=== PATIENT | female | born 1950 | race Caucasian/White ===

== ENCOUNTER 2016-05-22 19:29 | Observation (INO) | payer MEDICARE, OTHER ==
[~2016-05-22 19:29] MED LIST: ALBU8I INH; BENZ100 PO; CARV3.125 PO; DUONI NEB; ECOT81TA2 PO; METR-1 PO; NEBUMIS6 INH; OYST500T77 PO; TAB-TAB PO; VITA100T15 PO; VITA400C28 PO; ZITH250T PO
[2016-05-22 19:32] VITALS: BP 172/85; PULSE 81; RESP 18; TEMP 98.1; O2SAT 98
[2016-05-22 20:27] LABS: AUTOMATED NEUTROPHIL # 3.5 TH/MM3 (1.8-7.7); BASOPHIL # 0.1 TH/MM3 (0-0.2); EOSINOPHIL # 0.3 TH/MM3 (0-0.4); EOSINOPHIL % 4.2 % (0.0-4.0); HEMATOCRIT 40.8 % (35.0-46.0); HEMO FLAGS DIFF FINAL; LYMPH % 35.1 % (9.0-44.0); LYMPHOCYTE # 2.3 TH/MM3 (1.0-4.8); MEAN CELL VOLUME 89.2 FL (80.0-100.0); MEAN CORPUSCULAR HEMOGLOBIN 30.3 PG (27.0-34.0); MONO % 6.8 % (0.0-8.0); NEUT % 52.9 % (16.0-70.0); PLATELET COUNT 340 TH/MM3 (150-450); RED BLOOD COUNT 4.57 MIL/MM3 (4.00-5.30); WHITE BLOOD COUNT 6.6 TH/MM3 (4.0-11.0)
[2016-05-22 20:57] LABS: ANION GAP 8 MEQ/L (5-15); BICARBONATE 28.7 MEQ/L (21.0-32.0); BLOOD UREA NITROGEN 11 MG/DL (7-18); CHLORIDE 101 MEQ/L (98-107); GLOMERULAR FILTRATION RATE 50 ML/MIN (>89); POTASSIUM 3.6 MEQ/L (3.5-5.1); SODIUM (NA) 138 MEQ/L (136-145)
[2016-05-22 21:07] LABS: CREATINE KINASE 110 U/L (26-192)
--- NOTE | 2016-05-22 21:07 | RADRPT ---
EXAM DATE/TIME: 05/22/2016 18:01 [place] COMPARISON: CHEST SINGLE AP, June 09, 2014, 10:46. INDICATIONS : Mid sternal chest pains x 4 days. MEDICAL HISTORY : Heart Attack SURGICAL HISTORY : Hysterectomy. Tonsillectomy. Cholecystectomy. ENCOUNTER: Initial ACUITY: 1 day PAIN SCORE: 5/10 LOCATION: Bilateral chest FINDINGS: A single view of the chest demonstrates the lungs to be symmetrically aerated without evidence of mas s, infiltrate or effusion. The cardiomediastinal contours are unremarkable. Mild thoracic dextroscol iosis. CONCLUSION: 1. No acute findings. Mild thoracic dextroscoliosis. Luigi Lopez MD on May 22, 2016 at 21:05 Board Certified Radiologist. This report was verified electronically.
[2016-05-22 21:18] LABS: CKMB 1.1 NG/ML (0.5-3.6)
[2016-05-22] MEDS ORDERED: ASPI1TAB69 PO (22:28)
[2016-05-22] MEDS ORDERED: ALPR.5 PO (22:28)
[2016-05-22] MEDS ORDERED: LORA-373 PO (22:29)
[2016-05-22 22:45] VITALS: BP 179/86; PULSE 76; RESP 24; TEMP 98.7; O2SAT 96
[2016-05-22] MEDS ORDERED: ACETAMINOPHEN 325 MG TAB PO ONE (22:45)
[2016-05-22] MEDS ORDERED: NITROGLYCERIN 2% OINT 1 GM PACKET TOP ONE (22:45)
--- NOTE | 2016-05-22 22:45 | PD ---
HPI Chief Complaint: Chest Pain Time Seen by Provider: 22:42 Travel History International Travel<30 days: No Contact w/Intl Traveler<30days: No History of Present Illness HPI 66-year-old female with a history of anxiety, takotsubo cardiomyopathy presents to the ED for evaluation of four-day history of central chest discomfort and fatigue. Onset at rest. No alleviating or exacerbating factors reported. Patient states this pain radiates to her jaw and teeth. She denies associated diaphoresis, palpitations, nausea, vomiting, shortness of breath. She has been able to go about her daily activities including 10,000 steps per day. She also complains of 5/10 bitemporal dull headache, gradual onset today. She denies dizziness, vision changes, photophobia. Patient had a heart catheter 05/2014 which revealed mild to moderate mitral valve leak. She does not currently have a pediatric radiologist. PFSH Past Medical History Heart Rhythm Problems: Yes (WAS TOLD HR WAS HIGH) Cancer: No Cardiac Catheterization: Yes (05/2014) Cardiomyopathy: Yes (MILD TO MODERATE MITRAL VALVE LEAK) Cardiovascular Problems: Yes High Cholesterol: Yes Chest Pain: No Congestive Heart Failure: No Diabetes: No Diminished Hearing: No Endocrine: No Genitourinary: Yes (UTI) Hypertension: No Immune Disorder: No Implanted Vascular Access Dvce: Yes Kidney Stones: No Musculoskeletal: No Neurologic: No Psychiatric: No Reproductive: Yes (HYSTERECTOMY) Respiratory: No Myocardial Infarction: No Renal Failure: No Dilation and Curettage (D&C): Yes (SEVERAL PRIOR TO HYSTERECTOMY) Past Surgical History Abdominal Surgery: Yes AICD: No Appendectomy: Yes Arteriovenous Shunt: No Body Medical Devices: BREAST IMPLANTS Cardiac Surgery: No Coronary Artery Bypass Graft: No Ear Surgery: No Endocrine Surgery: No Eye Surgery: No Genitourinary Surgery: No Gynecologic Surgery: No Hysterectomy: Yes Insulin Pump: No Joint Replacement: No Oral Surgery: No Pacemaker: No Thoracic Surgery: No Tonsillectomy: Yes Other Surgery: Yes (BREAST AUGMENTATION) Social History Alcohol Use: Yes (GLASS OF WINE OCC) Tobacco Use: No (QUIT 1994) Substance Use: No Allergies-Medications (Allergen,Severity, Reaction): Coded Allergies: No Known Allergies (Verified , 06/13/14) Reported Meds & Prescriptions Reported Meds & Active Scripts Active Reported Lorazepam 0.5 Mg Tab 0.5 Mg PO BID PRN Aspirin 81 Mg Tabdr 81 Mg PO DAILY Review of Systems Except as stated in HPI: all other systems reviewed are Neg Physical Exam Narrative GENERAL: Well-nourished, well-developed pleasant white female in no acute distress. SKIN: Warm and dry. HEAD: Normocephalic. Atraumatic. EYES: No scleral icterus. No injection or drainage. PERRLA. EOMI. ENT: Pearly luis tympanic membranes bilaterally. Nasal mucosa is moist. Oropharynx without erythema, edema or exudate. NECK: Supple, trachea midline. No JVD or lymphadenopathy. CARDIOVASCULAR: Regular rate and rhythm without murmurs, gallops, or rubs. 2+ DP and radial pulses bilaterally. RESPIRATORY: Breath sounds clear and equal bilaterally. No accessory muscle use. GASTROINTESTINAL: Abdomen soft, non-tender, nondistended. + Bowel sounds MUSCULOSKELETAL: No cyanosis, or edema. The patient is ambulatory, observed to walk with a normal gait. NEUROLOGICAL: Awake and alert. Cranial nerves II through XII intact. Motor and sensory grossly within normal limits. 5/5 muscle strength in all muscle groups. Normal speech. BACK: Nontender without obvious deformity. No CVA tenderness. Data Data Last Documented VS Vital Signs Date Time Temp Pulse Resp B/P Pulse Ox O2 Delivery O2 Flow Rate FiO2 05/22/16 23:00 98.7 72 24 158/77 98 Room Air Orders Electrocardiogram (05/22/16 19:34) Complete Blood Count With Diff (05/22/16 19:34) Basic Metabolic Panel (Bmp) (05/22/16 19:34) Ckmb (Isoenzyme) Profile (05/22/16 19:34) Troponin I (05/22/16 19:34) Chest, Single Ap (05/22/16 19:34) CKMB (05/22/16 20:10) CKMB% (05/22/16 20:10) Electrocardiogram (05/22/16 22:39) Ckmb (Isoenzyme) Profile (05/22/16 22:39) Prothrombin Time / Inr (Pt) (05/22/16 22:39) Act Partial Throm Time (Ptt) (05/22/16 22:39) Troponin I (05/22/16 22:39) Ecg Monitoring (05/22/16 22:39) Bilateral Bp Monitoring (05/22/16 22:39) Iv Access Insert/Monitor (05/22/16 22:39) Oximetry (05/22/16 22:39) Nitroglycerin 2% Oint (Nitroglycerin 2% (05/22/16 22:45) Acetaminophen (Tylenol) (05/22/16 22:45) Urinalysis - C+S If Indicated (05/22/16 22:58) Admit Order (Ed Use Only) (05/22/16 23:07) Place In Observation (05/22/16 23:07) Activity Bed Rest With Brp (05/22/16 23:07) Vital Signs (Adult) Q4H (05/22/16 23:07) Cardiac Rhythm .As Directed (05/22/16 23:07) ^ Notify Dr: Other .PRN (05/22/16 23:07) ^ Notify DrSteven Parameters (05/22/16 23:07) Resp Oxygen Nasal Cannula (05/22/16 ) Ckmb (Isoenzyme) Profile (05/23/16 02:07) Troponin I (05/23/16 02:07) Electrocardiogram (05/23/16 02:07) ^ Obtain (05/22/16 23:07) Sodium Chloride 0.9% Flush (Ns Flush) (05/22/16 23:15) Sodium Chloride 0.9% Flush (Ns Flush) (05/22/16 23:15) Mushroom Cultivator / Telemetry TICO.Q8H (05/22/16 23:07) Labs Laboratory Tests Test 05/22/16 05/22/16 20:10 22:50 White Blood Count 6.6 TH/MM3 Red Blood Count 4.57 MIL/MM3 Hemoglobin 13.9 GM/DL Hematocrit 40.8 % Mean Corpuscular Volume 89.2 FL Mean Corpuscular Hemoglobin 30.3 PG Mean Corpuscular Hemoglobin 34.0 % Concent Red Cell Distribution Width 13.0 % Platelet Count 340 TH/MM3 Mean Platelet Volume 6.8 FL Neutrophils (%) (Auto) 52.9 % Lymphocytes (%) (Auto) 35.1 % Monocytes (%) (Auto) 6.8 % Eosinophils (%) (Auto) 4.2 % Basophils (%) (Auto) 1.0 % Neutrophils # (Auto) 3.5 TH/MM3 Lymphocytes # (Auto) 2.3 TH/MM3 Monocytes # (Auto) 0.4 TH/MM3 Eosinophils # (Auto) 0.3 TH/MM3 Basophils # (Auto) 0.1 TH/MM3 CBC Comment DIFF FINAL Differential Comment Sodium Level 138 MEQ/L Potassium Level 3.6 MEQ/L Chloride Level 101 MEQ/L Carbon Dioxide Level 28.7 MEQ/L Anion Gap 8 MEQ/L Blood Urea Nitrogen 11 MG/DL Creatinine 1.09 MG/DL Estimat Glomerular Filtration 50 ML/MIN Rate Random Glucose 75 MG/DL Calcium Level 9.1 MG/DL Total Creatine Kinase 110 U/L 99 U/L Creatine Kinase MB 1.1 NG/ML Troponin I LESS THAN 0.02 LESS THAN 0.02 NG/ML NG/ML Prothrombin Time 11.1 SEC Prothromb Time International 1.0 RATIO Ratio Activated Partial 26.2 SEC Thromboplast Time Urine Color LIGHT-YELLOW Urine Turbidity CLEAR Urine pH 7.0 Urine Specific [place] 1.004 Urine Protein NEG mg/dL Urine Glucose (UA) NEG mg/dL Urine Ketones NEG mg/dL Urine Occult Blood NEG Urine Nitrite NEG Urine Bilirubin NEG Urine Urobilinogen LESS THAN 2.0 MG/DL Urine Leukocyte Esterase MOD Urine RBC LESS THAN 1 /hpf Urine WBC 8 /hpf Urine Squamous Epithelial <1 /hpf Cells Urine Bacteria RARE /hpf Microscopic Urinalysis Comment CULTURE INDICATED MDM Medical Decision Making Medical Screen Exam Complete: Yes Emergency Medical Condition: Yes Differential Diagnosis chest pain versus angina versus ACS versus cardiomyopathy versus anxiety versus Narrative Course 66-year-old female with a history of anxiety, takotsubo cardiomyopathy presents to the ED for evaluation of four-day history of central chest discomfort and fatigue. Onset at rest. No alleviating or exacerbating factors reported. Patient states this pain radiates to her jaw and teeth. She denies associated diaphoresis, palpitations, nausea, vomiting, shortness of breath. She has been able to go about her daily activities including 10,000 steps per day. She also complains of 5/10 bitemporal dull headache, gradual onset today. She denies dizziness, vision changes, photophobia. Patient had a heart catheter 05/2014 which revealed mild to moderate mitral valve leak. She does not currently have a pediatric radiologist. Vitals reviewed. Repeat 172/82 on presentation. Physical exam reveals a nontoxic-appearing white female in no acute distress. Chest is clear to auscultation bilaterally, equal pulses in all extremities. No focal neural deficits. Protocols were done in triage. First set of cardiac enzymes is negative. CBC: Unremarkable CMP: Unremarkable Cardiac enzymes: Negative 1 EKG: Sinus rhythm rate 70, VT interval 177, QRS 96, QTc 387. Normal axis. No ischemic changes. Reviewed by Dr. Fischer. Chest x-ray: No acute findings per radiology read. UA: Pending. Patient was administered Tylenol, 1 inch nitroglycerin paste applied to her chest. I discussed this patient, workup and plan of care with Dr. Fischer who is agreeable. Discussed the workup with the patient, recommended admission to the chest pain center for serial cardiac enzymes and EKGs. Patient and her family are amenable to this plan of care. Please see chest pain center notes for disposition. Diagnosis Primary Impression: Chest pain Qualified Code: R07.9 - Chest pain, unspecified type Sania Rodriguez May 22, 2016 22:45
[2016-05-22 23:00] VITALS: BP 158/77; PULSE 72; RESP 24; TEMP 98.7; O2SAT 98
[2016-05-22 23:10] VITALS: O2SAT 98
[2016-05-22] MEDS ORDERED: SODIUM CHLORIDE 0.9% FLUSH 5 ML FLUSH IVF PRN (23:15)
[2016-05-22 23:16] LABS: APTT (PATIENT) 26.2 SEC (24.3-30.1); PROTHROMBIN TIME - PATIENT 11.1 SEC (9.8-11.6)
[2016-05-22 23:23] LABS: BACTERIA, URINE RARE /hpf; BLOOD, URINE NEG (NEG); COMMENT (UR) CULTURE INDICATED; CULTURE IF INDICATED CULTURE INDICATED; GLUCOSE,URINE NEG (NEG); KETONE, URINE NEG (NEG); NITRITE,URINE NEG (NEG); SQUAMOUS EPITHELIAL CELL URINE <1 /hpf (0-5); URINE COLOR LIGHT-YELLOW (YELLW/STRAW)
[2016-05-22 23:30] VITALS: BP 132/67; PULSE 66; RESP 18; O2SAT 99
[2016-05-22] MEDS: SODIUM CHLORIDE 0.9% FLUSH 5 ML FLUSH IVF SCH (23:42)
[2016-05-23] VITALS: BP 119/74; PULSE 64; RESP 18; O2SAT 98
[2016-05-23 00:11] LABS: CREATINE KINASE 99 U/L (26-192)
[2016-05-23] MEDS ORDERED: LORazepam 0.5 MG TAB PO ONE (01:15)
[2016-05-23 04:00] VITALS: BP 113/65; PULSE 60; RESP 18; O2SAT 98
[2016-05-23 07:10] VITALS: BP 122/67; PULSE 58; RESP 18; TEMP 97.9; O2SAT 98
[2016-05-23 07:48] LABS: CREATINE KINASE 82 U/L (26-192)
--- NOTE | 2016-05-23 07:50 | HHI.DCPOC ---
Discharge Care Plan Diagnosis: (1) Chest pain Goals to Promote Your Health * To prevent worsening of your condition and complications * To maintain your health at the optimal level Directions to Meet Your Goals Take your medications as prescribed Follow your dietary instruction Follow activity as directed Keep your appointments as scheduled Take your immunizations and boosters as scheduled If your symptoms worsen call your PCP, if no PCP go to Urgent Care Center or Emergency Room Smoking is Dangerous to Your Health. Avoid second hand smoke Call the 24-hour hour crisis hotline for domestic abuse at Shayne Mendez May 23, 2016 07:50
--- NOTE | 2016-05-23 08:08 | MH ---
cc: BIN MCKAY MD DATE OF ADMISSION: 05/22/2016 HISTORY OF PRESENT ILLNESS This is a 66-year-old who is admitted to the hospital for a four day history of chest discomfort. She has a history of NC which was felt to be Takotsubo syndrome 2 years ago. At that time she experienced severe emotional event with the of her . She was seen in the hospital and underwent cardiac catheterization revealing normal coronaries with evidence for Takotsubo syndrome. Her followup exam demonstrated resolution of her left ventricular dysfunction. She has actually been doing quite well over the past 2 years. She has had no exertional discomfort and is quite active on a daily basis. This past Saturday on the anniversary of her 's she began having chest discomfort again and this also coincided with a decision whether or not to move out of her current location. In the end she decided not to do that but again complaining of continuous chest discomfort since that time. Last night she actually had onset of significant headache with discomfort in both jaws and came to the emergency department. On arrival to the emergency department her blood pressure was elevated but chest x-ray has been normal as has her electrocardiogram and troponins are normal times three. PAST MEDICAL HISTORY Past medical history has otherwise been significant for hypertension. SOCIAL HISTORY The patient does not smoke, having stopped in 1994. She occasionally drinks a glass of wine. She does not use recreational drugs. ALLERGIES None. MEDICATIONS Current medications at home have included: 1. Aspirin. 2. Lorazepam. PHYSICAL EXAMINATION GENERAL: On physical exam she is awake and alert, in no distress. VITAL SIGNS: Her blood pressure is 115/80. HEENT: Unremarkable. NECK: There is no neck vein distension. Carotids are normal. LUNGS: Clear. CARDIOVASCULAR: Reveals a regular rate and rhythm. There is no significant murmur, no gallop is noted. ABDOMEN: Soft. No tenderness or organomegaly. EXTREMITIES: Reveal no edema. ASSESSMENT The patient has had an anxiety reaction due to her anniversary of her 's . I see no evidence to suggest repeat Takotsubo and at this point in time we can safely discharge her with followup with her primary physician. Bin Mckay MD HA/GRANT /7:49 AM :57 AM
[2016-05-23] MEDS: SODIUM CHLORIDE 0.9% FLUSH 5 ML FLUSH IVF SCH (08:53)
--- NOTE | 2016-05-23 16:01 | EKG ---
Date Performed: 05/23/2016 Time Performed: 06:26:57 PTAGE: 66 years EKG: SINUS BRADYCARDIA POSSIBLE RIGHT VENTRICULAR CONDUCTION DELAY EARLY REPOLARIZATION BORDERLI NE ECG PREVIOUS TRACING : 05/22/2016 19.48 Since previous tracing, no significant change noted DOCTOR: Bin Mckay Interpretating Date/Time 05/23/2016 16:00:01
--- NOTE | 2016-05-23 16:03 | EKG ---
Date Performed: 05/22/2016 Time Performed: 22:43:23 PTAGE: 66 years EKG: Sinus rhythm POSSIBLE RIGHT VENTRICULAR CONDUCTION DELAY BORDERLINE ECG INTERPRETATION BASED ON A DEFAULT AGE OF 40 YEARS PREVIOUS TRACING : 05/22/2016 19.48 Since previous tracing, no significant change noted DOCTOR: Bin Mckay Interpretating Date/Time 05/23/2016 16:01:11
--- NOTE | 2016-05-23 16:04 | EKG ---
Date Performed: 05/22/2016 Time Performed: 19:48:06 PTAGE: 66 years EKG: Sinus rhythm POSSIBLE RIGHT VENTRICULAR CONDUCTION DELAY BORDERLINE ECG PREVIOUS TRACING : 06/11/2014 14.47 Since previous tracing, no significant change noted DOCTOR: Bin Mckay Interpretating Date/Time 05/23/2016 16:02:19
== END 2016-05-23 08:56 | disposition home or self-care (01) ==
LOC: NEPE 19:29 → NEDA 23:09 → NEDH 05-23 03:56
PROVIDERS: ADMIT Internal Medicine Interventional Cardiology; ATTEND Internal Medicine Interventional Cardiology
DX: R07.89 Other chest pain (principal); F41.9 Anxiety disorder, unspecified; I51.81 Takotsubo syndrome; R94.31 Abnormal electrocardiogram [ECG] [EKG]; E78.00 Pure hypercholesterolemia, unspecified; I25.2 Old myocardial infarction
CPT/HCPCS: 71010; 80048; 81001; 82550; 82552; 84484; 85025; 85610; 85730; 87086; 93005; 99285; G0378